=== PATIENT | female | born 1965 | race African-American/Black ===

== ENCOUNTER 2021-06-18 09:31 | Emergency (ER) | payer OTHER, SELFPAY ==
[2021-06-18 11:00] VITALS: BP 146/90; PULSE 69; RESP 18; TEMP 36.7; O2SAT 99; BMI 35.8
--- NOTE | 2021-06-18 11:24 | HMH.EDUTC ---
[facility] [place] Clinical Impression: Exposure to COVID-19 virus Disposition: Home, Self-Care Condition on Discharge: Good Instructions: DI for COVID-19 (Suspected or Confirmed ), Preventing the Spread of Coronavirus Discharge Instructions Additional Instructions: *Monitor Temp, Over the counter Motrin or Tylenol as directed/as needed Tylenol every 4 hours and Motrin every 6 hours (as long as your family doctor has told you that you can take it) for fever or pa-in. and straight to ER if unable to lower temp less than 101.0 after medication given Follow up IMMEDIATELY for new or worsening symptoms or no Noticeable improvement over the next 48-72 hours. 911 for difficulty breathing or swallowing You were tested for today for COVID19 your test result should be back in the next 24-48 hours, Check the [facility] Portal to see if your test results are back in the next 48 it may say detected that means your result is positive.You was given handout instructions on how log on and see your results. If you do not have internet access you may call the [facility] for your results [phone] You was given a handout with instructions for Self Quarantine and Self isolation for while you wait on test results and what to do if they are positive If you are positive the Health Dept will be contacting you also Make sure to take your Vitamins Vit. C Vit D and Zinc if you can take them Referrals: Dat Washington MD [Primary Care Provider] - As needed Forms: Work/School Release Medical Decision Making - Nitesh Inquiry Pt receiving controlled substance: No Nitesh was queried for this patient: No Vital Signs: 06/18/21 11:00 Temperature 98.1 F Temperature Source Oral Pulse Rate [Right Brachial] 69 Respiratory Rate 18 Blood Pressure [Right Arm] 146/90 H Blood Pressure Mean [Right Arm] 108 Blood Pressure Source [Right Arm] Automatic Cuff Blood Pressure Position [Right Arm] Sitting 02 Sat by Pulse Oximetry 99 Oxygen Delivery Method Room Air Orders (Tests/Meds): ORDERS Category Date Time Status Covid-19 Nasal PCR ([facility]) Routine Lab 06/18/21 11:00 Received [facility] [place] - General Stated complaint: Covid test Time Seen by Provider: 06/18/21 11:24 Mode of Arrival: Ambulatory Source of Information: Patient Limitations: No Limitations Description of Symptoms (Recalled from Triage Doc. by RN): COVID TEST D/T EXPOSURE, DENIES SYMPTOMS HEENT Symptoms (Recalled from RN notes): No Resp Symptoms (Recalled from RN notes): No Skin Symptoms (Recalled from RN notes): No MS Symptoms (Recalled from RN notes): No Functional Status (Recalled from RN notes): WNL - History of Present Illness Provider Complaint: Patient states that she was recently around someone at work that tested positive for COVID states that work is making her get tested before she can come back Denies any symptoms - Related Data Previous Rx's Medication Instructions Recorded neomycin 3.5 mg/g-polymyxin B 1 applic OPHTHALMIC TID #3.5 g 03/08/21 10,000 unit/g-dexameth 0.1 % eye oint Allergies Allergy/AdvReac Type Severity Reaction Status Date / Time No Known Allergies Allergy Verified 08/23/20 14:19 - Worker's Comp Is this a Worker's Comp case?: No [facility] History - Hepatitis A Screen Drug use history?: No High risk sexual behaviors?: No History of sexually transmitted infection?: No Currently employed?: No Childcare worker?: No Do you have indoor plumbing?: Yes Do you have electricity?: Yes Attestation statement:: This patient has been screened for Hepatitis A risk factors. I have reviewed the patient's past medical history: Yes Other Surgeries: Yes: No Previous Surgery Amputation: No Fractures: No - Social History Smoking Status: Current every day smoker # Packs/Day (cigarettes): 1 Alcohol Intake: never Substance Use Type: denies use Occupational Status: employed Family Hx:: No significant family history ROS Obtained: Yes All systems review
[2021-06-18 11:30] VITALS: BP 146/90; PULSE 69; RESP 18; TEMP 36.7; O2SAT 99
== END 2021-06-18 11:33 | disposition home or self-care (01) ==
PROVIDERS: Emergency Provider Nurse Practitioner; PCP Emergency Medicine
DX: Z20.822 Contact with and (suspected) exposure to COVID-19 (principal); F17.210 Nicotine dependence, cigarettes, uncomplicated
CPT/HCPCS: 99202; G0463; U0003

== ENCOUNTER 2021-06-26 11:04 | Emergency (ER) | payer OTHER, SELFPAY ==
[2021-06-26 12:14] VITALS: BP 139/87; PULSE 87; RESP 18; TEMP 36.8; O2SAT 99; BMI 34.7
--- NOTE | 2021-06-26 12:16 | HMH.EDUTC ---
[facility] [place] Impression: Exposure to COVID-19 virus Disposition: Home, Self-Care Condition on Discharge: Good Instructions: DI for COVID-19 (Suspected or Confirmed ), Preventing the Spread of Coronavirus Discharge Instructions Additional Instructions: Drink plenty of fluids. Take tylenol for pain or fever. Return if you begin to have difficulty breathing. Follow up with your regular doctor. GO TO THE ER FOR ANY WORSENING SYMPTOMS Quarantine until you know the results of your covid-19 test. If it is positive, the health department should call you and give you further instructions about your length of Quarantine and other things. Notify your school or workplace of your results and follow their instructions regarding return to work/school. Referrals: Provider,Referral, [Primary Care Provider] - Time of Disposition: 12:20 Medical Decision Making - Medical Records Medical records reviewed: No: I reviewed the patient's medical records. - Nitesh Inquiry Pt receiving controlled substance: No Vital Signs: 06/26/21 12:14 06/26/21 12:20 Temperature 98.2 F 98.2 F Temperature Source Oral Pulse Rate 87 Pulse Rate [Right Radial] 87 Respiratory Rate 18 18 Blood Pressure 139/87 Blood Pressure [Right Arm] 139/87 Blood Pressure Mean [Right Arm] 104 Blood Pressure Source [Right Arm] Automatic Cuff Blood Pressure Position Sitting Blood Pressure Position [Right Arm] Sitting 02 Sat by Pulse Oximetry 99 Oxygen Delivery Method Room Air Room Air [facility] [place] - General Stated complaint: covid test Time Seen by Provider: 06/26/21 12:16 - History of Present Illness Provider Complaint: She was exposed to covid-19 by her son having covid-19. She denies any symptoms. She needs to be tested for her job. - Related Data Allergies Allergy/AdvReac Type Severity Reaction Status Date / Time No Known Allergies Allergy Verified 08/23/20 14:19 [facility] History - Hepatitis A Screen Attestation statement:: This patient has been screened for Hepatitis A risk factors. I have reviewed the patient's past medical history: Yes Other Surgeries: Yes: No Previous Surgery Amputation: No Fractures: No - Social History Smoking Status: Current every day smoker # Packs/Day (cigarettes): 1 Alcohol Intake: never Substance Use Type: denies use Occupational Status: employed Family Hx:: No significant family history ROS Obtained: Yes All systems reviewed & no additional complaints - Constitutional Constitutional: Reports system reviewed and no additional complaints, except as docu - Eyes Eyes: Reports system reviewed and no additional complaints, except as docu - ENT Ears, Nose, Mouth, and Throat: Reports system reviewed and no additional complaints, except as docu - Cardiovascular Cardiovascular: Reports system reviewed and no additional complaints, except as docu - Respiratory Respiratory: Reports system reviewed and no additional complaints, except as docu - Gastrointestinal Gastrointestingal: Reports: system reviewed and no additional complaints, except as docu Physical Exam - General General appearance: alert, in no apparent distress - Head Head exam: atraumatic, normocephalic, normal inspection - Eye Eye exam: Present: normal appearance, PERRL, EOMI - ENT ENT exam: Present: normal exam, normal oropharynx, mucous membranes moist, TM's normal bilaterally, normal external ear exam - Neck Neck exam: Present: normal inspection, full ROM, trachea midline. Absent: meningismus, lymphadenopathy - Chest Chest inspection: Present: normal inspection, symmetric chest wall rise. Absent: tenderness - Respiratory Respiratory exam: Present: normal lung sounds bilaterally. Absent: respiratory distress - Cardiovascular Cardiovascular exam: Present: regular rate, normal rhythm. Absent: JVD - Abdominal Exam Abdominal exam: Present: soft, normal bowel sounds. Absent: dist
[2021-06-26 12:20] VITALS: BP 139/87; PULSE 87; RESP 18; TEMP 36.8; O2SAT 99
== END 2021-06-26 12:20 | disposition home or self-care (01) ==
PROVIDERS: Emergency Provider Nurse Practitioner Family
DX: Z20.822 Contact with and (suspected) exposure to COVID-19 (principal)
CPT/HCPCS: 99202; G0463; U0003

== ENCOUNTER → 2021-10-24 22:05 | Outpatient (CLI) | payer OTHER, SELFPAY | PROVIDERS: PCP Emergency Medicine; Visit Provider Nurse Practitioner Family | DX: Z20.822 Contact with and (suspected) exposure to COVID-19 (principal) | CPT/HCPCS: C9803; U0003; U0005 ==

== ENCOUNTER → 2021-10-25 01:47 | Outpatient (CLI) | payer OTHER, SELFPAY | PROVIDERS: PCP Emergency Medicine; Visit Provider Nurse Practitioner Family | DX: Z20.822 Contact with and (suspected) exposure to COVID-19 (principal) ==

== ENCOUNTER → 2022-01-22 19:00 | Outpatient (CLI) | payer OTHER, SELFPAY ==
[2022-01-22 14:04] LABS: Basophils % 0.7 % (0.1-2.0); Eosinophils # 0.2 K/mm3 (0.0-0.4); Eosinophils % 2.9 % (0.1-12.0); Hematocrit 45.3 % (37.0-47.0); Hemoglobin 14.6 g/dL (12.2-16.2); Lymphocytes # 2.5 K/mm3 (0.7-4.5); Lymphocytes % 50.5 % (10-50); Mean Corpuscular HGB Conc 32.1 g/dL (31.8-35.4); Mean Corpuscular Hemoglobin 29.1 pg (27.0-31.2); Mean Corpuscular Volume 90.8 fl (81-99); Mean Platelet Volume 9.9 fl (7.4-10.4); Monocytes # 0.3 K/mm3 (0.1-1.0); Neutrophils % 40.8 % (37.0-80.0); Platelet Count 272 K/mm3 (142-424); Red Cell Distribution Width 13.7 % (11.5-17.5)
[2022-01-22 14:08] LABS: Chloride 108 mmol/L (98-107); Potassium 3.9 mmoL/L (3.5-5.1); Sodium 140 mmol/L (136-145)
[2022-01-22 14:09] LABS: MANUAL DIFFERENTIAL MANUAL DIFFERENTIAL (MANUAL DIFF)
[2022-01-22 14:11] LABS: Alanine Aminotransferase 15 U/L (12-78); Albumin Level 3.7 g/dl (3.5-5.0); Albumin/Globulin Ratio 1.4 (1.1-1.8); Alkaline Phosphatase 109 U/L (38-126); Anion Gap 8.9 mEq/L (5-15); Aspartate Amino Transferase 21 U/L (14-36); Bilirubin,Total 0.4 mg/dl (0.2-1.3); Blood Urea Nitrogen 14 mg/dl (7-17); Carbon Dioxide 27 mmol/L (22.0-30.0); Cholesterol 202 mg/dl (140-200); Estimated Glomerular Filt Rate 65 ml/min (>60); GFR (African American) 79 ML/MIN (>60); Globulin 2.7 g/dL (1.3-3.2); Total Protein,Serum 6.4 g/dl (6.3-8.2); Triglycerides 276 mg/dl (30-150); VLDL Cholesterol 55 mg/dL (0-40)
[2022-01-22 14:12] LABS: Calcium 8.6 mg/dl (8.4-10.2); Chol/HDL Ratio 4.5 (1-3.5); Glucose 109 mg/dl (74-100); HDL Cholesterol 45 mg/dl (40-60)
[2022-01-22 14:23] LABS: Direct LDL Cholesterol 116.75 mg/dL (100-129)
[2022-01-22 14:27] LABS: Free T4 (Free Thyroxine) 1.04 ng/dl (0.78-2.19)
[2022-01-22 14:33] LABS: 25-OH Vitamin D, Total < 12.8 ng/mL (30-100)
[2022-01-22 14:42] LABS: Thyroid Stimulating Hormone 2.11 uIU/mL (0.465-4.68)
[2022-01-22 18:27] LABS: Anisocytosis 1+; Lymphocytes % 17 % (10-50); Microcytosis 1+; Monocytes % 11 % (2-9); Neutrophils % 72 % (42-76); Platelet Estimate Normal; Total Cells Counted 100
== END ==
PROVIDERS: Visit Provider Emergency Medicine
DX: E03.9 Hypothyroidism, unspecified (principal); R53.83 Other fatigue; K59.00 Constipation, unspecified; E55.9 Vitamin D deficiency, unspecified
CPT/HCPCS: 80053; 80061; 82306; 84439; 84443; 85007; 85025

== ENCOUNTER → 2022-04-17 08:57 | Outpatient (CLI) | payer OTHER, SELFPAY ==
--- NOTE | 2022-04-17 09:00 | XR_ITS ---
FINAL REPORT CLINICAL HISTORY: left knee pain FINDINGS: LEFT KNEE: Three views of the left knee were obtained. There is no acute fracture or dislocation. There is mild degenerative change. There is no joint effusion. Soft tissues are unremarkable. IMPRESSION: Mild degenerative change. Reviewed, Interpreted and Dictated by Tomasz Varma III, MD Transcribed by Cherry Vincent Authenticated and [facility]
--- NOTE | 2022-04-17 09:00 | XR_ITS ---
FINAL REPORT CLINICAL HISTORY: rt elbow pain FINDINGS: RIGHT ELBOW Three views were obtained. There is no acute fracture or dislocation. The joint spaces are intact. There is no soft tissue abnormality. IMPRESSION: No acute bony abnormality. Reviewed, Interpreted and Dictated by Tomasz Varma III, MD Transcribed by Cherry Vincent Authenticated and [facility]
== END ==
PROVIDERS: PCP Emergency Medicine; Visit Provider Orthopaedic Surgery
DX: M25.521 Pain in right elbow (principal); M25.562 Pain in left knee
CPT/HCPCS: 73080; 73562

== ENCOUNTER → 2022-04-23 08:41 | Outpatient (CLI) | payer OTHER, SELFPAY ==
[2022-04-23 09:23] LABS: Blood Urea Nitrogen 12 mg/dl (7-17); Estimated Glomerular Filt Rate 57 ml/min (>60); GFR (African American) 69 ML/MIN (>60)
--- NOTE | 2022-04-23 13:57 | MR_ITS ---
FINAL REPORT CLINICAL HISTORY: RIGHT MEDIAL ELBOW PAIN PT STATED A LARGE LUMP CAME UP X 6 MONTHS AGO SWELLING AT FIRST WHEN SHE NOTICED IT FINDINGS: Multiplanar MR imaging of the right elbow was performed with and without contrast. The bony structures are intact without evidence of fracture, bone bruise or marrow edema. There is a small osteochondral lesion in the radial head. The ligaments appear intact. The common extensor tendon is intact. The common flexor tendon is intact. The biceps tendon is intact. The distal triceps tendon is intact. The brachialis tendon is intact. The musculature has an unremarkable appearance. There is a 5.2 x 3.4 x 3.0 cm well-circumscribed fat signal mass in the medial subcutaneous tissues which does not show contrast enhancement consistent with a lipoma. There is a small joint effusion. No focal abnormality is identified of the ulnar nerve. 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 Osteochondral lesion in the radial head. Reviewed, Interpreted and Dictated by Tomasz Varma III, MD Transcribed by Cynthia Mack Authenticated and [facility]
== END ==
PROVIDERS: PCP Emergency Medicine; Visit Provider Orthopaedic Surgery
DX: M25.521 Pain in right elbow (principal)
CPT/HCPCS: 36415; 73223; 82565; 84520; A9576

== ENCOUNTER 2022-09-15 21:09 | Emergency (ER) | payer OTHER, SELFPAY ==
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
[2022-09-15 21:10] VITALS: BP 133/78; PULSE 80; RESP 16; TEMP 36.6; O2SAT 98; BMI 34.7
[2022-09-15 21:16] VITALS: BP 133/78; PULSE 80; RESP 16; TEMP 36.6; O2SAT 98
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
--- NOTE | 2022-09-15 21:23 | ECG_ITS ---
APPROVED REPORT Exam: Resting ECG HR:44 bpm ECG Measurements Heart Rate 44 AXES UT 116 P -10 QRSd 101 QRS -12 QT 551 T 17 QTc 503 Conclusion SINUS BRADYCARDIA WITH SHORT UT INTERVAL ST DEVIATION AND MODERATE T-WAVE ABNORMALITY, CONSIDER ANTEROLATERAL ISCHEMIA [-0.1+ mV T-WAVE IN V3-V6] PROLONGED QT INTERVAL CRITICAL TEST RESULT UNCONFIRMED REPORT Electronically signed by : Silverio Avila MD 09/16/2022 21:11:05
--- NOTE | 2022-09-15 21:25 | PC.NURSE ---
2114 assessed pt as she was attempting to get out of bed. the pt appeared disoriented pt then stated she felt like she was rufina to pass out. pt blood pressure was dropping 80 s systolic and the pt was becoming more unresponsive to verbal stimuli. obtained verbal order from dr Washington and pressure bagged
[2022-09-15 21:30] VITALS: BP 86/50; PULSE 61; RESP 13; TEMP 36.5; O2SAT 72
[2022-09-15 21:37] VITALS: BP 83/45; PULSE 58; RESP 16; O2SAT 100
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
[2022-09-15 21:48] VITALS: BMI 34.7
[2022-09-15 21:56] LABS: Alanine Aminotransferase 15 U/L (12-78); Albumin Level 4.5 g/dl (3.5-5.0); Albumin/Globulin Ratio 1.3 (1.1-1.8); Alkaline Phosphatase 123 U/L (38-126); Anion Gap 17.2 mEq/L (5-15); Aspartate Amino Transferase 31 U/L (14-36); Bilirubin,Total 0.3 mg/dl (0.2-1.3); Blood Urea Nitrogen 16 mg/dl (7-17); Calcium 9.5 mg/dl (8.4-10.2); Carbon Dioxide 31 mmol/L (22.0-30.0); Chloride 97 mmol/L (98-107); Creatinine Clearance Estimated 91 mL/min (50-200); Estimated Glomerular Filt Rate 51 ml/min (>60); GFR (African American) 62 ML/MIN (>60); Globulin 3.4 g/dL (1.3-3.2); Glucose 116 mg/dl (74-100); Potassium 3.2 mmoL/L (3.5-5.1); Sodium 142 mmol/L (136-145); Total Protein,Serum 7.9 g/dl (6.3-8.2)
[2022-09-15 21:57] LABS: Basophils # 0.1 K/mm3 (0-0.2); Basophils % 1.4 % (0.1-2.0); Eosinophils # 0.3 K/mm3 (0.0-0.4); Eosinophils % 2.9 % (0.1-12.0); Hematocrit 46.7 % (37.0-47.0); Hemoglobin 15.4 g/dL (12.2-16.2); Lymphocytes # 3.8 K/mm3 (0.7-4.5); Lymphocytes % 43.5 % (10-50); Mean Corpuscular HGB Conc 32.9 g/dL (31.8-35.4); Mean Corpuscular Hemoglobin 28.9 pg (27.0-31.2); Mean Platelet Volume 8.7 fl (7.4-10.4); Monocytes # 0.4 K/mm3 (0.1-1.0); Monocytes % 3.9 % (1.7-9.3); Neutrophils # 4.2 K/mm3 (1.8-7.8); Neutrophils % 48.3 % (37.0-80.0); Platelet Count 310 K/mm3 (142-424); Red Blood Count 5.31 M/mm3 (4.20-5.40); Red Cell Distribution Width 13.7 % (11.5-17.5); White Blood Count 8.8 K/mm3 (4.8-10.8)
[2022-09-15 22:04] VITALS: BP 150/79; PULSE 73; RESP 16; O2SAT 96
--- NOTE | 2022-09-15 22:10 | PC.NURSE ---
perlita on phone with mds
--- NOTE | 2022-09-15 22:15 | PC.WOUNDNOTE ---
pt blood pressure still low after initial bag of fluids 2nd line in place and 2nd bag of fluids verbally ordered and started per dr Washington.
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
[2022-09-15 22:36] VITALS: BMI 34.7
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
[2022-09-15 23:26] VITALS: BP 162/86; PULSE 68; RESP 13; TEMP 36.5; O2SAT 97
== END 2022-09-15 23:20 | disposition short-term general hospital (02) ==
PROVIDERS: Emergency Provider Emergency Medicine
DX: S01.01XA Laceration without foreign body of scalp, initial encounter (principal); S06.0XAA Concussion with loss of consciousness status unknown, initial encounter; R07.9 Chest pain, unspecified; R00.0 Tachycardia, unspecified; M54.2 Cervicalgia; R51.9 Headache, unspecified; Z20.822 Contact with and (suspected) exposure to COVID-19; E66.9 Obesity, unspecified; F41.9 Anxiety disorder, unspecified; F17.200 Nicotine dependence, unspecified, uncomplicated; Z68.30 Body mass index [BMI] 30.0-30.9, adult; V40.0XXA Car driver injured in collision with pedestrian or animal in nontraffic accident, initial encounter
CPT/HCPCS: 31605; 51702; 70450; 71045; 71260; 72125; 72170; 74177; 80053; 85025; 93005; 99291; G0390; Q9967

== ENCOUNTER 2023-12-11 18:25 | Outpatient (CLI) | payer OTHER, SELFPAY ==
[2023-12-11 18:07] LABS: Alanine Aminotransferase 13 U/L (12-78); Albumin Level 3.9 g/dl (3.5-5.0); Albumin/Globulin Ratio 1.2 (1.1-1.8); Alkaline Phosphatase 108 U/L (38-126); Anion Gap 10.4 mEq/L (5-15); Aspartate Amino Transferase 18 U/L (14-36); Basophils % 0.5 % (0.1-2.0); Bilirubin,Total 0.5 mg/dl (0.2-1.3); Blood Urea Nitrogen 13 mg/dl (7-17); Calcium 9.7 mg/dl (8.4-10.2); Carbon Dioxide 27 mmol/L (22.0-30.0); Chloride 106 mmol/L (98-107); Chol/HDL Ratio 6.2 (1-3.5); Cholesterol 249 mg/dl (140-200); Eosinophils # 0.2 K/mm3 (0.0-0.4); Eosinophils % 3.5 % (0.1-12.0); Estimated Glomerular Filt Rate 74 ml/min (>60); GFR (African American) 89 ML/MIN (>60); Globulin 3.2 g/dL (1.3-3.2); Glucose 97 mg/dl (74-100); HDL Cholesterol 40 mg/dl (40-60); Hematocrit 42.1 % (37.0-47.0); Hemoglobin 13.8 g/dL (12.2-16.2); Lymphocytes # 2.8 K/mm3 (0.7-4.5); Mean Corpuscular HGB Conc 32.9 g/dL (31.8-35.4); Mean Corpuscular Hemoglobin 28.8 pg (27.0-31.2); Mean Corpuscular Volume 87.4 fl (81-99); Mean Platelet Volume 9.2 fl (7.4-10.4); Monocytes # 0.4 K/mm3 (0.1-1.0); Monocytes % 7.3 % (1.7-9.3); Neutrophils % 36.7 % (37.0-80.0); Platelet Count 292 K/mm3 (142-424); Potassium 4.4 mmoL/L (3.5-5.1); Red Blood Count 4.81 M/mm3 (4.20-5.40); Sodium 139 mmol/L (136-145); Total Protein,Serum 7.1 g/dl (6.3-8.2); Triglycerides 264 mg/dl (30-150); VLDL Cholesterol 53 mg/dL (0-40); White Blood Count 5.4 K/mm3 (4.8-10.8)
[2023-12-11 18:08] LABS: MANUAL DIFFERENTIAL MANUAL DIFFERENTIAL (MANUAL DIFF)
[2023-12-11 18:19] LABS: Direct LDL Cholesterol 123.31 mg/dL (100-129); Hemoglobin A1C 5.4 % (4.0-6.0)
[2023-12-11 18:24] LABS: 25-OH Vitamin D, Total 13.3 ng/mL (30-100)
[2023-12-11 18:28] LABS: Free Thyroxine Index 2.6 ug/dL (5.93-13.13); T4 (Thyroxine) 7.8 ug/dl (5.53-11.0); Triiodothryronine (T3) Uptake 33 % (23.5-40.5)
[2023-12-11 18:42] LABS: Thyroid Stimulating Hormone 0.69 uIU/mL (0.465-4.68)
[2023-12-11 18:56] LABS: Vitamin B12 394 pg/mL (239-931)
[2023-12-11 21:17] LABS: Eosinophils % 5 % (0-3); Lymphocytes % 49 % (10-50); Monocytes % 6 % (2-9); Neutrophils % 40 % (42-76); Platelet Estimate Normal; RBC Morphology Normal; Total Cells Counted 100
== END 2023-12-11 23:59 ==
LOC: LAB.DROPOF 18:25
PROVIDERS: PCP Family Medicine; Visit Provider Family Medicine
DX: M25.511 Pain in right shoulder (principal); M25.521 Pain in right elbow; E55.9 Vitamin D deficiency, unspecified; E66.9 Obesity, unspecified; Z68.34 Body mass index [BMI] 34.0-34.9, adult; Z72.0 Tobacco use; E78.1 Pure hyperglyceridemia
CPT/HCPCS: 80053; 80061; 82306; 82607; 83036; 84436; 84443; 84479; 85007; 85025

== ENCOUNTER 2025-09-22 13:40 | Outpatient (CLI) | payer SELFPAY ==
[2025-09-22 20:41] LABS: Anion Gap 9.3 mEq/L (5-15); Blood Urea Nitrogen 13 mg/dl (7-17); Calcium 9.4 mg/dl (8.4-10.2); Carbon Dioxide 26 mmol/L (22.0-30.0); Chloride 104 mmol/L (98-107); Creatinine,Serum 0.80 mg/dl (0.52-1.04); Estimated Glomerular Filt Rate 73 ml/min (>60); GFR (African American) 89 ML/MIN (>60); Glucose 103 mg/dl (74-100); Potassium 4.3 mmoL/L (3.5-5.1); Sodium 135 mmol/L (136-145); Uric Acid 6.2 mg/dl (2.5-6.2)
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
== END 2025-09-22 23:59 | disposition home or self-care (01) ==
LOC: LAB.DROPOF 09-25 13:40
PROVIDERS: PCP Student in an Organized Health Care Education/Training Program; Visit Provider Student in an Organized Health Care Education/Training Program
DX: M10.9 Gout, unspecified (principal); M25.40 Effusion, unspecified joint; M25.572 Pain in left ankle and joints of left foot
CPT/HCPCS: 80048; 84550